=== PATIENT | male | born 1970 | race Two or more races ===

== ENCOUNTER 2020-11-15 07:41 | Day surgery (SDC) | payer OTHER ==
[~2020-11-15 07:41] MED LIST: FORTAMET500 MG PO
[2020-11-15] MEDS ORDERED: MELOXICAM7.5 MG PO (14:35)
[2020-11-15] MEDS ORDERED: ACETAMINOPHEN-1 EAC2 PO (14:36)
[2020-11-15] MEDS ORDERED: AMOX1TAB5 PO (14:37)
== END 2020-11-15 15:35 | disposition home or self-care (01) ==
LOC: CIR.AMB 07:41
PROVIDERS: ATTEND Surgery
DX: N48.6 Induration penis plastica (principal); Z20.822 Contact with and (suspected) exposure to COVID-19

== ENCOUNTER 2021-06-14 08:00 | Outpatient (CLI) | payer OTHER ==
[~2021-06-14 08:00] MED LIST changes: +ACETAMINOPHEN-1 EAC2 PO; +AMOX1TAB5 PO; +MELOXICAM7.5 MG PO
== END 2021-06-14 08:30 | disposition home or self-care (01) ==
LOC: PPH VACUNA 08:00
PROVIDERS: ATTEND Emergency Medicine Pediatric Emergency Medicine
DX: Z23 Encounter for immunization (principal)

== ENCOUNTER 2022-01-01 08:00 | Outpatient (CLI) | payer OTHER | END 2022-01-01 08:30 | disposition home or self-care (01) | LOC: PPH VACUNA 08:00 | PROVIDERS: ATTEND Emergency Medicine Pediatric Emergency Medicine | DX: Z23 Encounter for immunization (principal) ==